=== PATIENT | male | born 1980 | race Caucasian/White ===

== ENCOUNTER 2017-03-23 12:49 | Inpatient (IN) | payer OTHER ==
[2017-03-23 14:54] VITALS: BMI 23.0
--- NOTE | 2017-03-23 17:38 | HP ---
CIWA Score - CIWA Score Nausea/Vomitin-No Nausea/No Vomiting Muscle Tremors: 3 Anxiety: 4-Mod. Anxious/Guarded Agitation: 4-Moderately Restless Paroxysmal Sweats: 3 Orientation: 3-Disoriented Date>2 days Tacttile Disturbances: 0-None Auditory Disturbances: 0-None Visual Disturbances: 0-None Headache: 2-Mild CIWA-Ar Total Score: 19 Admission ROS BHS - HPI Chief Complaint: Withdrawal sx. Allergies/Adverse Reactions: Allergies Allergy/AdvReac Type Severity Reaction Status Date / Time haloperidol [From Haldol] AdvReac Severe stiffness Verified 03/23/17 16:55 haloperidol lactate AdvReac Severe stiffness Verified 03/23/17 16:55 [From Haldol] History of Present Illness: 36 y/o man with a long hx. of drug dependence is admitted for detox. Pt. has been in previous detox,denies significant period drug free. Exam Limitations: No Limitations - Ebola screening Have you traveled outside of the country in the last 21 days: No Have you had contact with anyone from an Ebola affected area: No Have you been sick,other than usual withdrawal symptoms: No - Review of Systems Constitutional: Diaphoresis EENT: reports: No Symptoms Reported Respiratory: reports: No Symptoms reported Cardiac: reports: No Symptoms Reported GI: reports: No Symptoms Reported : reports: No Symptoms Reported Musculoskeletal: reports: Back Pain, Muscle Pain Integumentary: reports: Sweating Neuro: reports: Tremors Endocrine: reports: No Symptoms Reported Hematology: reports: No Symptoms Reported Psychiatric: reports: Agitated, Anxious Other Systems: Reviewed and Negative Patient History - Patient Medical History Hx Anemia: No Hx Asthma: No Hx Chronic Obstructive Pulmonary Disease (COPD): No Hx Cancer: No Hx Cardiac Disorders: No Hx Congestive Heart Failure: No Hx Hypertension: No Hx Hypercholesterolemia: No Hx Pacemaker: No HX Cerebrovascular Accident: No Hx Seizures: No Hx Dementia: No Hx Diabetes: No Hx Gastrointestinal Disorders: No Hx Genitourinary Disorders: No Hx Sexually Transmitted Disorders: Yes Hx Renal Disease (ESRD): No Hx Hepatitis C: Yes (Being treated with Epclusa) Hx Depression: No Hx Suicide Attempt: No Hx Bipolar Disorder: No Hx Schizophrenia: No - Patient Surgical History Past Surgical History: No Hx Neurologic Surgery: No Hx Cataract Extraction: No Hx Cardiac Surgery: No Hx Lung Surgery: No Hx Breast Surgery: No Hx Breast Biopsy: No Hx Abdominal Surgery: No Hx Appendectomy: No Hx Cholecystectomy: No Hx Genitourinary Surgery: No Hx Section: No Hx Orthopedic Surgery: No Anesthesia Reaction: No - PPD History Previous Implant?: Yes Documented Results: Negative w/o proof Implanted On Prior [facility] Admission?: No PPD to be Administered?: Yes - Smoking Cessation Smoking history: Current every day smoker Have you smoked in the past 12 months: Yes Aproximately how many cigarettes per day: 10 Hx Chewing Tobacco Use: No Initiated information on smoking cessation: Yes 'Breaking Loose' booklet given: 03/23/17 - Substance & Tx. History Hx Alcohol Use: No Hx Substance Use: Yes Substance Use Type: Cocaine, Heroin, Tranquilizers Hx Substance Use Treatment: Yes (Detox at [facility] 10/2016 & now OTP) - Substances Abused Cocaine Route: Injection Frequency: Daily Amount used: $200 Age of first use: 33 Date of Last Use: 03/22/17 Heroin Route: Injection Frequency: Daily Amount used: 8-10 bags Age of first use: 32 Date of Last Use: 03/23/17 Xanax Route: Oral Frequency: Daily Amount used: 16-20 mg. Age of first use: 30 Date of Last Use: 03/22/17 Family Disease History - Family Disease History Family Disease History: CA: Grandparent (Breast) Admission Physical Exam BHS - Vital Signs Vital Signs: Vital Signs - 24 hr 03/23/17 14:52 Temperature 96.4 F L Pulse Rate 49 L Respiratory 20 Rate Blood Pressure 93/54 - Physical General Appearance: Yes: Tremorous, Irritable, Sweating, Anxious HEENTM: Yes: Within Normal Limits Respiratory: Yes: Chest Non-Tender, Lungs Clear, Normal Breath Sounds Neck: Yes: Supple Breast: Yes: Breast Exam Deferred Cardiology: Yes: Regular Rhythm, Regular Rate, S1, S2 Abdominal: Yes: Normal Bowel Sounds, Non Tender, Flat, Soft Genitourinary: Yes: Within Normal Limits Back: Yes: Within Normal Limits Musculoskeletal: Yes: full range of Motion Extremities: Yes: Tremors, Pedal Edema (both LE), Swelling (left>right with pitting edema) Neurological: Yes: Fully Oriented, Alert Integumentary: Yes: Diaphoresis, Pitting Edema (LE), Other (mutiple slash alcantar left forearm) Lymphatic: Yes: Within Normal Limits - Diagnostic (1) Hep C w/o coma, chronic Current Visit: Yes Status: Acute (2) Opioid dependence on agonist therapy Current Visit: Yes Status: Acute (3) Sedative, hypnotic or anxiolytic dependence with withdrawal, uncomplicated Current Visit: Yes Status: Acute (4) Cocaine dependence, uncomplicated Current Visit: Yes Status: Acute Cleared for Admission [facility] - Detox or Rehab [facility] Level of Care: Medically Managed Detox Regimen/Protocol: Valium [facility] Breath Alcohol Content Breath Alcohol Content: 0 Urine Drug Screen - Results Drug Screen Negative: No Urine Drug Screen Results: PAKO-Cocaine, OPI-Opiates, BZO-Benzodiazepines, MTD- Methadone
[2017-03-23] MEDS ORDERED: MAGNESIUM HYDROX 2400MG/30ML ORAL SUSPENSION 30 ML CUP PO PRN (17:55)
[2017-03-23] MEDS ORDERED: IBUPROFEN 400 MG TABLET (FP) PO PRN (17:55)
[2017-03-23] MEDS ORDERED: MAG HYDROX/AL HYDROX/SIMETH 30 ML UNIT-DOSE CUP PO PRN (17:55)
[2017-03-23] MEDS ORDERED: MAGNESIUM CITRATE 300 ML BOTTLE PO PRN (17:55)
[2017-03-23] MEDS ORDERED: P-EPHED 60MG/TRIPROLIDI 2.5MG TABLET PO PRN (17:55)
[2017-03-23] MEDS ORDERED: NICOTINE POLACRILEX 2 MG GUM BC PRN (17:55)
[2017-03-23] MEDS ORDERED: LOPERAMIDE HCL 2 MG CAPSULE PO PRN (17:55)
[2017-03-23] MEDS ORDERED: diphenhydrAMINE HCL 50 MG CAPSULE PO PRN (17:55)
[2017-03-23] MEDS ORDERED: hydrOXYzine PAMOATE 50 MG CAPSULE (FP) PO PRN (17:55)
[2017-03-23] MEDS ORDERED: ACETAMINOPHEN 325 MG TABLET (FP) PO PRN (17:55)
[2017-03-23] MEDS ORDERED: MENTHOL/PHENOL 1 EACH UD MM PRN (17:55)
[2017-03-23] MEDS ORDERED: guaiFENesin/D-METHORPHAN HB 10 ML UNIT-DOSE CUPS PO PRN (17:55)
[2017-03-23] MEDS ORDERED: diazePAM 5 MG TABLET PO ONE (18:45)
[2017-03-23] MEDS: NICOTINE 21 MG/24 HOURS TOPICAL PATCH TD SCH (18:56)
[2017-03-23] MEDS: THIAMINE HCL 100 MG TABLET (FP) PO SCH (22:36)
[2017-03-23] MEDS: diazePAM 5 MG TABLET PO SCH (22:37)
--- NOTE | 2017-03-23 23:05 | PN ---
S Progress Note Note: ekg ap 38/min observed patient ambulating in room, alert oriented x 3, speech clearly coherent , steady gait, heart rate 48, regular s1s2, continue detox
[2017-03-24 02:38] LABS: URINE APPEARANCE SLCLOUDY; URINE BILIRUBIN NEGATIVE (NEGATIVE); URINE BLOOD NEGATIVE (NEGATIVE); URINE COLOR AMBER; URINE GLUCOSE (UA) NEGATIVE (NEGATIVE); URINE KETONE NEGATIVE (NEGATIVE); URINE LEUK ESTERASE NEGATIVE (NEGATIVE); URINE NITRITE NEGATIVE (NEGATIVE); URINE UROBILINOGEN 4.0 E.U/dl E.U./dl (0.2-1.0)
[2017-03-24 02:40] LABS: URINE PROTEIN 1+ (NEGATIVE)
[2017-03-24 02:50] LABS: CALCIUM OXALATE CRYSTALS FEW /hpf (NONE SEEN); URINE MUCUS MANY; URINE RBC 3 /hpf (0-3); URINE WBC 4 /hpf (3-5)
[2017-03-24] MEDS: diazePAM 5 MG TABLET PO SCH ×3 (06:03→22:44)
[2017-03-24] MEDS ORDERED: METHADONE HCL 40 MG DISPERSABLE TABLET PO ONE (09:25)
[2017-03-24] MEDS: NICOTINE 21 MG/24 HOURS TOPICAL PATCH TD SCH (10:48)
[2017-03-24] MEDS: PRENATAL VITAMINS W/ FOLIC ACID TABLET (FP) PO SCH (10:48)
[2017-03-24] MEDS: PATIENT'S OWN MEDICATION (NON-FORMULARY) (Sofosbuvir/Velpatasvir [Epclusa 400 Mg-100 Mg Ta PO SCH (10:48)
[2017-03-24 10:58] LABS: ALBUMIN 3.2 g/dl (3.4-5.0); ALK PHOS 79 U/L (45-117); ANION GAP 6 (8-16); BILIRUBIN,TOTAL 0.6 mg/dL (0.2-1.0); CALCIUM 8.6 mg/dL (8.5-10.1); CO2 29 mmol/L (21-32); CREATININE 0.8 mg/dL (0.7-1.3); GLUCOSE,RANDOM 113 mg/dL (74-106); SGOT/AST 27 U/L (15-37); SGPT/ALT 23 U/L (12-78); TOT PROT 6.4 g/dl (6.4-8.2)
--- NOTE | 2017-03-24 13:26 | PN ---
[facility] CIWA - CIWA Score Nausea/Vomitin-No Nausea/No Vomiting Muscle Tremors: 4-Moderate,w/Arms Extend Anxiety: 4-Mod. Anxious/Guarded Agitation: 4-Moderately Restless Paroxysmal Sweats: 1-Minimal Palms Moist Orientation: 0-Oriented Tacttile Disturbances: 3-Moderate Itch/Numb/Burn Auditory Disturbances: 0-None Visual Disturbances: 0-None Headache: 0-None Present CIWA-Ar Total Score: 16 BHS Progress Note (SOAP) Subjective: ANXIETY,SWEATS, IRRITABILITY,DECREASED APPETITE. Objective: 03/24/17 13:25 Vital Signs Temperature 96.6 F L 03/24/17 10:35 Pulse Rate 44 L 03/24/17 10:35 Respiratory Rate 18 03/24/17 10:35 Blood Pressure 105/64 03/24/17 10:35 O2 Sat by Pulse Oximetry (%) Laboratory Last Values WBC Cancelled 03/24/17 06:00 Corrected WBC (auto) Cancelled 03/24/17 06:00 RBC Cancelled 03/24/17 06:00 Hgb Cancelled 03/24/17 06:00 Hct Cancelled 03/24/17 06:00 MCV Cancelled 03/24/17 06:00 MCHC Cancelled 03/24/17 06:00 RDW Cancelled 03/24/17 06:00 Plt Count Cancelled 03/24/17 06:00 MPV Cancelled 03/24/17 06:00 Differential Comment Cancelled 03/24/17 06:00 Platelet Estimate Cancelled 03/24/17 06:00 Platelet Comment Cancelled 03/24/17 06:00 Platelet Comment Cancelled 03/24/17 06:00 RBC Morphology Cancelled 03/24/17 06:00 Sodium 139 mmol/L (136-145) 03/24/17 06:00 Potassium 4.3 mmol/L (3.5-5.1) 03/24/17 06:00 Chloride 104 mmol/L (98-107) 03/24/17 06:00 Carbon Dioxide 29 mmol/L (21-32) 03/24/17 06:00 Anion Gap 6 (8-16) L 03/24/17 06:00 BUN 15 mg/dL (7-18) 03/24/17 06:00 Creatinine 0.8 mg/dL (0.7-1.3) 03/24/17 06:00 Creat Clearance w eGFR > 60 (>60) 03/24/17 06:00 Random Glucose 113 mg/dL (74-106) H 03/24/17 06:00 Calcium 8.6 mg/dL (8.5-10.1) 03/24/17 06:00 Total Bilirubin 0.6 mg/dL (0.2-1.0) 03/24/17 06:00 AST 27 U/L (15-37) 03/24/17 06:00 ALT 23 U/L (12-78) 03/24/17 06:00 Alkaline Phosphatase 79 U/L (45-117) 03/24/17 06:00 Total Protein 6.4 g/dl (6.4-8.2) 03/24/17 06:00 Albumin 3.2 g/dl (3.4-5.0) L 03/24/17 06:00 Urine Color Feder[place] 03/24/17 00:11 Urine Appearance Slcloudy 03/24/17 00:11 Urine pH 5.0 (5.0-8.0) 03/24/17 00:11 Ur Specific [place] >= 1.030 (1.005-1.025) H 03/24/17 00:11 Urine Protein 1+ (NEGATIVE) H 03/24/17 00:11 Urine Glucose (UA) Negative (NEGATIVE) 03/24/17 00:11 Urine Ketones Negative (NEGATIVE) 03/24/17 00:11 Urine Blood Negative (NEGATIVE) 03/24/17 00:11 Urine Nitrite Negative (NEGATIVE) 03/24/17 00:11 Urine Bilirubin Negative (NEGATIVE) 03/24/17 00:11 Urine Urobilinogen 4.0 e.u/dl E.U./dl (0.2-1.0) 03/24/17 00:11 Ur Leukocyte Esterase Negative (NEGATIVE) 03/24/17 00:11 Urine RBC 3 /hpf (0-3) 03/24/17 00:11 Urine WBC 4 /hpf (3-5) 03/24/17 00:11 Calcium Oxalate Crystal Few /hpf (NONE SEEN) 03/24/17 00:11 Urine Mucus Many 03/24/17 00:11 RPR Titer Nonreactive (NONREACTIVE) 03/24/17 06:00 Assessment: 03/24/17 13:25 WITHDRAWAL SX Plan: CONTINUE DETOX INCREASE PO FLUIDS
--- NOTE | 2017-03-24 14:08 | CONSULT ---
[facility] Psychiatric Consult - Data Date of interview: 03/24/17 Admission source: [facility] Identifying data: This is 36 years old male with no psychiatric hospitalization history intoxicat. Opioids, Xanax, Cocaine, Nicotine Substance Abuse History: - Smoking Cessation. Smoking history: Current every day smoker. Have you smoked in the past 12 months: Yes. Aproximately how many cigarettes per day: 10. Hx Chewing Tobacco Use: No. Initiated information on smoking cessation: Yes. 'Breaking Loose' booklet given: 03/23/17. - Substance & Tx. History. Hx Alcohol Use: No. Hx Substance Use: Yes. Substance Use Type : Cocaine, Heroin, Tranquilizers. Hx Substance Use Treatment: Yes (Detox at [facility] 10/2016 & now OTP). - Substances Abused. Cocaine. Route: Injection. Frequency: Daily. Amount used: $200. Age of first use: 33. Date of Last Use: 03/22/17. Heroin. Route: Injection. Frequency: Daily. Amount used: 8-10 bags. Age of first use: 32. Date of Last Use: 03/23/17. Xanax. Route: Oral. Frequency: Daily. Amount used: 16-20 mg. Age of first use: 30. Date of Last Use: 03/22/17 Medical History: HepC+ Psychiatric History: Patient reports severe insomnia, reports Seroquel 100mg po qhs in the past with good response Physical/Sexual Abuse/Trauma History: Denies Additional Comment: Seroquel 100mg po qhs Mental Status Exam - Mental Status Exam Alert and Oriented to: Person Cognitive Function: Fair Patient Appearance: Unkempt Mood: Anxious Affect: Mood Congruent Patient Behavior: Cooperative Speech Pattern: Appropriate Voice Loudness: Normal Thought Process: Goal Oriented Thought Disorder: Being Controlled Hallucinations: Denies Suicidal Ideation: Denies Homicidal Ideation: Denies Insight/Judgement: Fair Sleep: Difficulty falling asleep Appetite: Fair Muscle strength/Tone: Normal Gait/Station: Normal Additional Comments: Seroquel 100mg po qhs Psychiatric Findings - Problem List ([place] 1, 2,3) (1) Sedative, hypnotic or anxiolytic dependence with withdrawal, uncomplicated Current Visit: Yes Status: Acute (2) Cocaine dependence, uncomplicated Current Visit: Yes Status: Acute (3) Opioid dependence on agonist therapy Current Visit: Yes Status: Acute (4) Nicotine dependence Current Visit: Yes Status: Acute (5) Drug-induced mood disorder Current Visit: Yes Status: Acute - Initial Treatment Plan Initial Treatment Plan: Seroquel 100mg po qhs
--- NOTE | 2017-03-24 15:53 | EKG ---
Test Reason : Blood Pressure : / mmHG Vent. Rate : 033 BPM Atrial Rate : 033 BPM P-R Int : 174 ms QRS Dur : 102 ms QT Int : 518 ms P-R-T Axes : 034 053 045 degrees QTc Int : 383 ms MARKED SINUS BRADYCARDIA ABNORMAL ECG NO PREVIOUS ECGS AVAILABLE Confirmed by BRAYDEN ROSALES MD ([id number]) on 03/24/2017 3:53:37 PM Referred By: Confirmed By:BRAYDEN ROSALES MD
--- NOTE | 2017-03-24 15:54 | EKG ---
Test Reason : Blood Pressure : / mmHG Vent. Rate : 039 BPM Atrial Rate : 039 BPM P-R Int : 172 ms QRS Dur : 096 ms QT Int : 482 ms P-R-T Axes : 031 038 039 degrees QTc Int : 388 ms POOR DATA QUALITY, INTERPRETATION MAY BE ADVERSELY AFFECTED MARKED SINUS BRADYCARDIA WITH SINUS ARRHYTHMIA ABNORMAL ECG Confirmed by BRAYDEN ROSALES MD ([id number]) on 03/24/2017 3:54:13 PM Referred By: Confirmed By:BRAYDEN ROSALES MD
[2017-03-24] MEDS: THIAMINE HCL 100 MG TABLET (FP) PO SCH (22:44)
[2017-03-24] MEDS: QUEtiapine FUMARATE 100 MG TABLET (FP) PO SCH (22:44)
[2017-03-25] MEDS: diazePAM 5 MG TABLET PO PRN (05:37)
[2017-03-25] MEDS: METHADONE HCL 40 MG DISPERSABLE TABLET PO SCH (05:37)
[2017-03-25] MEDS ORDERED: AMOX TR/POT CLAV 875MG/125MG TABLETS (FP) PO ONE (10:10)
[2017-03-25] MEDS ORDERED: BACITRACIN 0.9 GM PACKET TP SCH (10:15)
[2017-03-25] MEDS: PRENATAL VITAMINS W/ FOLIC ACID TABLET (FP) PO SCH (10:40)
[2017-03-25] MEDS: NICOTINE 21 MG/24 HOURS TOPICAL PATCH TD SCH (10:40)
[2017-03-25] MEDS: PATIENT'S OWN MEDICATION (NON-FORMULARY) (Sofosbuvir/Velpatasvir [Epclusa 400 Mg-100 Mg Ta PO SCH (10:40)
[2017-03-25] MEDS: diazePAM 5 MG TABLET PO SCH ×2 (10:40→22:29)
--- NOTE | 2017-03-25 11:45 | PN ---
[facility] CIWA - CIWA Score Nausea/Vomitin-No Nausea/No Vomiting Muscle Tremors: 4-Moderate,w/Arms Extend Anxiety: 4-Mod. Anxious/Guarded Agitation: 4-Moderately Restless Paroxysmal Sweats: 1-Minimal Palms Moist Orientation: 0-Oriented Tacttile Disturbances: 3-Moderate Itch/Numb/Burn Auditory Disturbances: 0-None Visual Disturbances: 0-None Headache: 0-None Present CIWA-Ar Total Score: 16 S Progress Note (SOAP) Subjective: ANXIETY,IRRITABILITY,SWEATS. C/O LUMP PAINFUL ON LEFT NECK THAT STARTED A SMALL PIMPLE. Objective: 03/25/17 11:43 Vital Signs Temperature 97.0 F L 03/25/17 10:12 Pulse Rate 52 L 03/25/17 10:12 Respiratory Rate 18 03/25/17 10:12 Blood Pressure 124/63 03/25/17 10:12 O2 Sat by Pulse Oximetry (%) Laboratory Last Values WBC Cancelled 03/24/17 06:00 Corrected WBC (auto) Cancelled 03/24/17 06:00 RBC Cancelled 03/24/17 06:00 Hgb Cancelled 03/24/17 06:00 Hct Cancelled 03/24/17 06:00 MCV Cancelled 03/24/17 06:00 MCHC Cancelled 03/24/17 06:00 RDW Cancelled 03/24/17 06:00 Plt Count Cancelled 03/24/17 06:00 MPV Cancelled 03/24/17 06:00 Differential Comment Cancelled 03/24/17 06:00 Platelet Estimate Cancelled 03/24/17 06:00 Platelet Comment Cancelled 03/24/17 06:00 Platelet Comment Cancelled 03/24/17 06:00 RBC Morphology Cancelled 03/24/17 06:00 Sodium 139 mmol/L (136-145) 03/24/17 06:00 Potassium 4.3 mmol/L (3.5-5.1) 03/24/17 06:00 Chloride 104 mmol/L (98-107) 03/24/17 06:00 Carbon Dioxide 29 mmol/L (21-32) 03/24/17 06:00 Anion Gap 6 (8-16) L 03/24/17 06:00 BUN 15 mg/dL (7-18) 03/24/17 06:00 Creatinine 0.8 mg/dL (0.7-1.3) 03/24/17 06:00 Creat Clearance w eGFR > 60 (>60) 03/24/17 06:00 Random Glucose 113 mg/dL (74-106) H 03/24/17 06:00 Calcium 8.6 mg/dL (8.5-10.1) 03/24/17 06:00 Total Bilirubin 0.6 mg/dL (0.2-1.0) 03/24/17 06:00 AST 27 U/L (15-37) 03/24/17 06:00 ALT 23 U/L (12-78) 03/24/17 06:00 Alkaline Phosphatase 79 U/L (45-117) 03/24/17 06:00 Total Protein 6.4 g/dl (6.4-8.2) 03/24/17 06:00 Albumin 3.2 g/dl (3.4-5.0) L 03/24/17 06:00 Urine Color Federica 03/24/17 00:11 Urine Appearance Slcloudy 03/24/17 00:11 Urine pH 5.0 (5.0-8.0) 03/24/17 00:11 Ur Specific [place] >= 1.030 (1.005-1.025) H 03/24/17 00:11 Urine Protein 1+ (NEGATIVE) H 03/24/17 00:11 Urine Glucose (UA) Negative (NEGATIVE) 03/24/17 00:11 Urine Ketones Negative (NEGATIVE) 03/24/17 00:11 Urine Blood Negative (NEGATIVE) 03/24/17 00:11 Urine Nitrite Negative (NEGATIVE) 03/24/17 00:11 Urine Bilirubin Negative (NEGATIVE) 03/24/17 00:11 Urine Urobilinogen 4.0 e.u/dl E.U./dl (0.2-1.0) 03/24/17 00:11 Ur Leukocyte Esterase Negative (NEGATIVE) 03/24/17 00:11 Urine RBC 3 /hpf (0-3) 03/24/17 00:11 Urine WBC 4 /hpf (3-5) 03/24/17 00:11 Calcium Oxalate Crystal Few /hpf (NONE SEEN) 03/24/17 00:11 Urine Mucus Many 03/24/17 00:11 RPR Titer Nonreactive (NONREACTIVE) 03/24/17 06:00 LABS NOTED NECK EXAM: LEFT NECK WITH 10 MM SIZE ABSCESS PAINFUL TO PALPATE. Assessment: 03/25/17 11:44 WITHDRAWAL SX Plan: CONTINUE DETOX BACITRACIN TO LEFT NECK ABSCESS AUGMENTIN 875 MG PO BID X 7 DAYS
[2017-03-25] MEDS: AMOX TR/POT CLAV 875MG/125MG TABLETS (FP) PO SCH (16:57)
[2017-03-25] MEDS: THIAMINE HCL 100 MG TABLET (FP) PO SCH (22:29)
[2017-03-25] MEDS: BACITRACIN 0.9 GM PACKET TP SCH (22:29)
[2017-03-25] MEDS: QUEtiapine FUMARATE 100 MG TABLET (FP) PO SCH (22:29)
[2017-03-26] MEDS: METHADONE HCL 40 MG DISPERSABLE TABLET PO SCH (05:35)
[2017-03-26] MEDS: diazePAM 5 MG TABLET PO PRN ×2 (05:36→17:35)
[2017-03-26] MEDS: AMOX TR/POT CLAV 875MG/125MG TABLETS (FP) PO SCH ×2 (07:37→17:33)
[2017-03-26] MEDS: PATIENT'S OWN MEDICATION (NON-FORMULARY) (Sofosbuvir/Velpatasvir [Epclusa 400 Mg-100 Mg Ta PO SCH (10:35)
[2017-03-26] MEDS: PRENATAL VITAMINS W/ FOLIC ACID TABLET (FP) PO SCH (10:35)
[2017-03-26] MEDS: BACITRACIN 0.9 GM PACKET TP SCH ×2 (10:35→22:20)
[2017-03-26] MEDS: diazePAM 5 MG TABLET PO SCH ×2 (10:35→22:20)
[2017-03-26] MEDS: NICOTINE 21 MG/24 HOURS TOPICAL PATCH TD SCH (10:36)
[2017-03-26] MEDS: GABAPENTIN 400 MG CAPSULE (FP) PO SCH ×2 (14:39→22:20)
--- NOTE | 2017-03-26 15:36 | PN ---
BHS Progress Note (SOAP) Subjective: Interrupted sleep, Body Aches. Objective: PT. A & O X 3, OBSERVED AMBULATING ON UNIT. NO ACUTE DISTRESS. 03/26/17 15:34 Vital Signs Temperature 98.4 F 03/26/17 13:56 Pulse Rate 74 03/26/17 13:56 Respiratory Rate 18 03/26/17 13:56 Blood Pressure 110/70 03/26/17 13:56 O2 Sat by Pulse Oximetry (%) Laboratory Tests 03/24/17 03/24/17 03/24/17 00:11 06:00 06:00 WBC Cancelled Corrected WBC (auto) Cancelled RBC Cancelled Hgb Cancelled Hct Cancelled MCV Cancelled MCHC Cancelled RDW Cancelled Plt Count Cancelled MPV Cancelled Differential Comment Cancelled Platelet Estimate Cancelled Platelet Comment Cancelled RBC Morphology Cancelled Sodium 139 Potassium 4.3 Chloride 104 Carbon Dioxide 29 Anion Gap 6 L BUN 15 Creatinine 0.8 Creat Clearance w eGFR > 60 Random Glucose 113 H Calcium 8.6 Total Bilirubin 0.6 AST 27 ALT 23 Alkaline Phosphatase 79 Total Protein 6.4 Albumin 3.2 L Urine Color Federica Urine Appearance Slcloudy Urine pH 5.0 Ur Specific [place] >= 1.030 H Urine Protein 1+ H Urine Glucose (UA) Negative Urine Ketones Negative Urine Blood Negative Urine Nitrite Negative Urine Bilirubin Negative Urine Urobilinogen 4.0 e.u/dl Ur Leukocyte Esterase Negative Urine RBC 3 Urine WBC 4 Calcium Oxalate Crystal Few Urine Mucus Many RPR Titer 03/24/17 06:00 WBC Corrected WBC (auto) RBC Hgb Hct MCV MCHC RDW Plt Count MPV Differential Comment Platelet Estimate Platelet Comment RBC Morphology Sodium Potassium Chloride Carbon Dioxide Anion Gap BUN Creatinine Creat Clearance w eGFR Random Glucose Calcium Total Bilirubin AST ALT Alkaline Phosphatase Total Protein Albumin Urine Color Urine Appearance Urine pH Ur Specific [place] Urine Protein Urine Glucose (UA) Urine Ketones Urine Blood Urine Nitrite Urine Bilirubin Urine Urobilinogen Ur Leukocyte Esterase Urine RBC Urine WBC Calcium Oxalate Crystal Urine Mucus RPR Titer Nonreactive LABS NOTED. Assessment: 03/26/17 15:34 WITHDRAWAL SYMPTOMS. Plan: CONTINUE DETOX.
[2017-03-26] MEDS: THIAMINE HCL 100 MG TABLET (FP) PO SCH (22:20)
[2017-03-26] MEDS: QUEtiapine FUMARATE 100 MG TABLET (FP) PO SCH (22:21)
[2017-03-27] MEDS: GABAPENTIN 400 MG CAPSULE (FP) PO SCH (05:47)
[2017-03-27] MEDS: METHADONE HCL 40 MG DISPERSABLE TABLET PO SCH (05:47)
[2017-03-27] MEDS: AMOX TR/POT CLAV 875MG/125MG TABLETS (FP) PO SCH (07:45)
[2017-03-27] MEDS ORDERED: diazePAM 5 MG TABLET PO SCH (10:00)
[2017-03-27] MEDS: BACITRACIN 0.9 GM PACKET TP SCH (10:11)
[2017-03-27] MEDS: PRENATAL VITAMINS W/ FOLIC ACID TABLET (FP) PO SCH (10:11)
[2017-03-27] MEDS: PATIENT'S OWN MEDICATION (NON-FORMULARY) (Sofosbuvir/Velpatasvir [Epclusa 400 Mg-100 Mg Ta PO SCH (10:12)
[2017-03-27] MEDS: NICOTINE 21 MG/24 HOURS TOPICAL PATCH TD SCH (10:13)
[2017-03-27 11:13] VITALS: BP 122/73; PULSE 60; TEMP 96.3
--- NOTE | 2017-03-27 14:11 | DS ---
[facility] Detox Discharge Summary Admission Date: 03/23/17 Discharge Date: 03/27/17 - History Present History: Cocaine Dependence, Opioid Dependence, Sedative Dependence, MMTP Pertinent Past History: Hepatitis C (treated) Neck abscess, acute: on augmentin - Physical Exam Results Vital Signs: Vital Signs Temperature 96.3 F L 03/27/17 11:13 Pulse Rate 60 03/27/17 11:13 Respiratory Rate 18 03/27/17 11:13 Blood Pressure 122/73 03/27/17 11:13 O2 Sat by Pulse Oximetry (%) Pertinent Admission Physical Exam Findings: Withdrawal symptoms Laboratory Tests 03/24/17 03/24/17 03/24/17 00:11 06:00 06:00 WBC Cancelled Corrected WBC (auto) Cancelled RBC Cancelled Hgb Cancelled Hct Cancelled MCV Cancelled MCHC Cancelled RDW Cancelled Plt Count Cancelled MPV Cancelled Differential Comment Cancelled Platelet Estimate Cancelled Platelet Comment Cancelled RBC Morphology Cancelled Sodium 139 Potassium 4.3 Chloride 104 Carbon Dioxide 29 Anion Gap 6 L BUN 15 Creatinine 0.8 Creat Clearance w eGFR > 60 Random Glucose 113 H Calcium 8.6 Total Bilirubin 0.6 AST 27 ALT 23 Alkaline Phosphatase 79 Total Protein 6.4 Albumin 3.2 L Urine Color Feder[place] Urine Appearance Slcloudy Urine pH 5.0 Ur Specific [place] >= 1.030 H Urine Protein 1+ H Urine Glucose (UA) Negative Urine Ketones Negative Urine Blood Negative Urine Nitrite Negative Urine Bilirubin Negative Urine Urobilinogen 4.0 e.u/dl Ur Leukocyte Esterase Negative Urine RBC 3 Urine WBC 4 Calcium Oxalate Crystal Few Urine Mucus Many RPR Titer 03/24/17 06:00 WBC Corrected WBC (auto) RBC Hgb Hct MCV MCHC RDW Plt Count MPV Differential Comment Platelet Estimate Platelet Comment RBC Morphology Sodium Potassium Chloride Carbon Dioxide Anion Gap BUN Creatinine Creat Clearance w eGFR Random Glucose Calcium Total Bilirubin AST ALT Alkaline Phosphatase Total Protein Albumin Urine Color Urine Appearance Urine pH Ur Specific [place] Urine Protein Urine Glucose (UA) Urine Ketones Urine Blood Urine Nitrite Urine Bilirubin Urine Urobilinogen Ur Leukocyte Esterase Urine RBC Urine WBC Calcium Oxalate Crystal Urine Mucus RPR Titer Nonreactive Labs noted: CBC reordered (not done): noted with abnormal UA (will repeat UA, encouraged to drink lots of water) - Treatment Hospital Course: Detox Protocol Followed, Detoxed Safely, Responded well, Discharged Condition Good, Rehab Referral Accepted - Medication Discharge Medications: Ambulatory Orders Sofosbuvir/Velpatasvir [Epclusa 400 mg-100 mg Tablet] 1 each PO DAILY 03/23/17 Quetiapine Fumarate [Seroquel] 100 mg PO HS #30 tablet 03/24/17 Gabapentin 600 mg PO TID 03/26/17 - Diagnosis (1) Sedative, hypnotic or anxiolytic dependence with withdrawal, uncomplicated Status: Acute (2) Cocaine dependence, uncomplicated Status: Chronic (3) Opioid dependence on agonist therapy Status: Acute (4) Hep C w/o coma, chronic Status: Chronic (5) Nicotine dependence Status: Chronic (6) Abscess of skin of neck Status: Acute - AMA Did Patient Leave Against Medical Advice: No
--- NOTE | 2017-03-27 22:16 | EKG ---
Test Reason : Blood Pressure : / mmHG Vent. Rate : 050 BPM Atrial Rate : 050 BPM P-R Int : 162 ms QRS Dur : 102 ms QT Int : 472 ms P-R-T Axes : 022 037 038 degrees QTc Int : 430 ms SINUS BRADYCARDIA NONSPECIFIC T WAVE ABNORMALITY ABNORMAL ECG WHEN COMPARED WITH ECG OF 24-MAR-2017 10:06, NONSPECIFIC T WAVE ABNORMALITY NOW EVIDENT IN ANTERIOR LEADS Confirmed by LILIANA LI MD ([id number]) on 03/27/2017 10:16:15 PM Referred By: Confirmed By:LILIANA LI MD
== END 2017-03-27 11:25 | disposition home or self-care (01) | DRG 773 ==
LOC: YASAS 12:49 → Y3N 17:42
PROVIDERS: ADMIT Internal Medicine; ATTEND Internal Medicine
PROC: HZ2ZZZZ Detoxification Services for Substance Abuse Treatment (ICD-10-PCS; principal; 2017-03-27)
DX: F11.20 Opioid dependence, uncomplicated (principal); F13.230 Sedative, hypnotic or anxiolytic dependence with withdrawal, uncomplicated; F14.20 Cocaine dependence, uncomplicated; F17.210 Nicotine dependence, cigarettes, uncomplicated; F19.24 Other psychoactive substance dependence with psychoactive substance-induced mood disorder; B18.2 Chronic viral hepatitis C; L02.11 Cutaneous abscess of neck; Z59.0 Homelessness
CPT/HCPCS: 36415; 80053; 81003; 81015; 86593; 93005; 93010

== ENCOUNTER 2018-08-23 14:27 | Inpatient (IN) | payer OTHER ==
[2018-08-23 18:57] VITALS: BMI 23.6
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
[2018-08-23] MEDS ORDERED: METHADONE HCL 10 MG TABLET PO ONE (21:41)
[2018-08-23] MEDS ORDERED: LOPERAMIDE HCL 2 MG CAPSULE PO PRN (21:45)
[2018-08-23] MEDS ORDERED: ACETAMINOPHEN 325 MG TABLET (FP) PO PRN (21:45)
[2018-08-23] MEDS ORDERED: guaiFENesin/D-METHORPHAN HB 10 ML UNIT-DOSE CUPS PO PRN (21:45)
[2018-08-23] MEDS ORDERED: MAGNESIUM CITRATE 300 ML BOTTLE PO PRN (21:45)
[2018-08-23] MEDS ORDERED: MAG HYDROX/AL HYDROX/SIMETH 30 ML UNIT-DOSE CUP PO PRN (21:45)
[2018-08-23] MEDS ORDERED: P-EPHED 60MG/TRIPROLIDI 2.5MG TABLET PO PRN (21:45)
[2018-08-23] MEDS ORDERED: MENTHOL/PHENOL 1 EACH UD MM PRN (21:45)
[2018-08-23] MEDS ORDERED: MAGNESIUM HYDROX 2400MG/30ML ORAL SUSPENSION 30 ML CUP PO PRN (21:45)
[2018-08-23] MEDS ORDERED: IBUPROFEN 400 MG TABLET (FP) PO PRN (21:45)
[2018-08-23] MEDS ORDERED: diazePAM 5 MG TABLET PO ONE (21:45)
[2018-08-23] MEDS ORDERED: NICOTINE POLACRILEX 2 MG GUM BUC PRN (21:45)
[2018-08-23] MEDS ORDERED: MELATONIN 5 MG TABLETS PO PRN (22:00)
[2018-08-23] MEDS: THIAMINE HCL 100 MG TABLET (FP) PO SCH (23:35)
[2018-08-23] MEDS: diazePAM 5 MG TABLET PO SCH (23:35)
[2018-08-24 02:11] LABS: URINE APPEARANCE TURBID; URINE BILIRUBIN NEGATIVE (<2.0 mg/dL); URINE COLOR AMBER; URINE GLUCOSE (UA) NEGATIVE (NEGATIVE); URINE KETONE NEGATIVE (NEGATIVE); URINE LEUK ESTERASE NEGATIVE (NEGATIVE); URINE NITRITE NEGATIVE (NEGATIVE); URINE PROTEIN NEGATIVE (NEGATIVE); URINE UROBILINOGEN 4.0 E.U/dl mg/dL (0.2-1.0)
[2018-08-24] MEDS: METHADONE HCL 40 MG DISPERSABLE TABLET PO SCH (05:11)
[2018-08-24] MEDS: diazePAM 5 MG TABLET PO SCH ×3 (05:11→22:08)
--- NOTE | 2018-08-24 09:35 | PN ---
[facility] CIWA - CIWA Score Nausea/Vomitin-Mild Nausea/No Vomiting Muscle Tremors: 3 Anxiety: 4-Mod. Anxious/Guarded Agitation: 4-Moderately Restless Paroxysmal Sweats: 1-Minimal Palms Moist Orientation: 1-Uncertain about Date Tacttile Disturbances: 1-Very Mild Itch/Numbness Auditory Disturbances: 1-Very Mild Visual Disturbances: 0-None Headache: 1-Very Mild CIWA-Ar Total Score: 17 BHS Progress Note (SOAP) Subjective: anxiety restlessness body aches sweat tremor trouble sleep at night methadone program 40 mg daily Objective: 08/24/18 09:36 Vital Signs Temperature 98.1 F 08/24/18 09:24 Pulse Rate 75 08/24/18 09:24 Respiratory Rate 20 08/24/18 09:24 Blood Pressure 126/73 08/24/18 09:24 O2 Sat by Pulse Oximetry (%) Laboratory Last Values Urine Color [place] 08/23/18 23:21 Urine Appearance Turbid 08/23/18 23:21 Urine pH 5.0 (5.0-8.0) 08/23/18 23:21 Ur Specific [place] 1.032 (1.010-1.035) 08/23/18 23:21 Urine Protein Negative (NEGATIVE) 08/23/18 23:21 Urine Glucose (UA) Negative (NEGATIVE) 08/23/18 23:21 Urine Ketones Negative (NEGATIVE) 08/23/18 23:21 Urine Blood Negative (NEGATIVE) 08/23/18 23:21 Urine Nitrite Negative (NEGATIVE) 08/23/18 23:21 Urine Bilirubin Negative (<2.0 mg/dL) 08/23/18 23:21 Urine Urobilinogen 4.0 e.u/dl mg/dL (0.2-1.0) 08/23/18 23:21 Ur Leukocyte Esterase Negative (NEGATIVE) 08/23/18 23:21 lab noted Assessment: 08/24/18 09:36 withdrawal sx from alcohol and methadone last dose 08/22/18 begin methadone 40 mg 08/24/18 at 6 am Plan: continue detox
[2018-08-24 10:18] LABS: HEMATOCRIT 37.6 % (35.4-49); HEMOGLOBIN 13.1 GM/dL (11.7-16.9); MCH 27.2 pg (25.7-33.7); MCHC 34.8 g/dl (32.0-35.9); MEAN CELL VOLUME 78.1 fl (80-96); MEAN PLT VOLUME 8.7 fl (7.5-11.1); PLATELET COUNT 165 K/MM3 (134-434); RBC 4.81 M/mm3 (4.00-5.60); RDW 14.7 % (11.9-15.9); WHITE BLOOD COUNT 5.6 K/mm3 (4.0-10.0)
[2018-08-24] MEDS: diazePAM 5 MG TABLET PO PRN ×2 (10:26→17:26)
[2018-08-24] MEDS: NICOTINE 14 MG/24 HOURS TOPICAL PATCH TD SCH (10:27)
[2018-08-24] MEDS: PRENATAL VITAMINS W/ FOLIC ACID TABLET (FP) PO SCH (10:27)
[2018-08-24 10:57] LABS: ALBUMIN 2.9 g/dl (3.4-5.0); ALK PHOS 57 U/L (45-117); ANION GAP 10 MMOL/L (8-16); BILIRUBIN,TOTAL 0.4 mg/dL (0.2-1); BLOOD UREA NITROGEN 12 mg/dL (7-18); CHLORIDE 106 mmol/L (98-107); CO2 27 mmol/L (21-32); CREATININE 0.7 mg/dL (0.55-1.3); GLUCOSE,RANDOM 84 mg/dL (74-106); POTASSIUM 3.8 mmol/L (3.5-5.1); SGOT/AST 58 U/L (15-37); SGPT/ALT 61 U/L (13-61); SODIUM 143 mmol/L (136-145); TOT PROT 5.9 g/dl (6.4-8.2)
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
[2018-08-24] MEDS: THIAMINE HCL 100 MG TABLET (FP) PO SCH (22:08)
[2018-08-24] MEDS: SUVOREXANT 10 MG TABLET PO PRN (22:09)
[2018-08-25] MEDS: METHADONE HCL 40 MG DISPERSABLE TABLET PO SCH (05:06)
--- NOTE | 2018-08-25 09:51 | EKG ---
Test Reason : Blood Pressure : / mmHG Vent. Rate : 078 BPM Atrial Rate : 078 BPM P-R Int : 152 ms QRS Dur : 104 ms QT Int : 412 ms P-R-T Axes : 067 054 030 degrees QTc Int : 469 ms NORMAL SINUS RHYTHM NON-SPECIFIC INTRA-VENTRICULAR CONDUCTION DELAY Confirmed by IRON SOLO MD ([id number]) on 08/25/2018 9:51:03 AM Referred By: Confirmed By:IRON SOLO MD
[2018-08-25] MEDS: NICOTINE 14 MG/24 HOURS TOPICAL PATCH TD SCH (10:18)
[2018-08-25] MEDS: diazePAM 5 MG TABLET PO SCH ×2 (10:18→22:15)
[2018-08-25] MEDS: PRENATAL VITAMINS W/ FOLIC ACID TABLET (FP) PO SCH (10:18)
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
[2018-08-25] MEDS: GABAPENTIN 300 MG CAPSULE (FP) PO SCH ×2 (14:24→22:15)
[2018-08-25] MEDS: diazePAM 5 MG TABLET PO PRN (17:01)
[2018-08-25] MEDS: THIAMINE HCL 100 MG TABLET (FP) PO SCH (22:15)
[2018-08-25] MEDS: SUVOREXANT 10 MG TABLET PO PRN (22:15)
[2018-08-26] MEDS: METHADONE HCL 40 MG DISPERSABLE TABLET PO SCH (05:13)
[2018-08-26] MEDS: GABAPENTIN 300 MG CAPSULE (FP) PO SCH ×3 (05:13→22:05)
[2018-08-26] MEDS: diazePAM 5 MG TABLET PO PRN ×2 (07:52→17:29)
[2018-08-26] MEDS: PRENATAL VITAMINS W/ FOLIC ACID TABLET (FP) PO SCH (10:24)
[2018-08-26] MEDS: diazePAM 5 MG TABLET PO SCH ×2 (10:24→22:05)
[2018-08-26] MEDS: NICOTINE 14 MG/24 HOURS TOPICAL PATCH TD SCH (10:24)
--- NOTE | 2018-08-26 12:24 | PN ---
S Progress Note (SOAP) Subjective: Anxious Worried about pending d/c requesting extra day Objective: 08/26/18 12:22 A & O x 3 Anxious Restless Ambulating up and down unit Vital Signs Temperature 96.2 F L 08/26/18 09:24 Pulse Rate 60 08/26/18 09:24 Respiratory Rate 18 08/26/18 09:24 Blood Pressure 123/72 08/26/18 09:24 O2 Sat by Pulse Oximetry (%) Assessment: 08/26/18 12:23 withdrawal sx Anxiety over discharge Plan: Continue detox For d/c on mon 08/28/18 for safe discharge ( see counselor's note)
[2018-08-26] MEDS: THIAMINE HCL 100 MG TABLET (FP) PO SCH (22:04)
[2018-08-26] MEDS: SUVOREXANT 10 MG TABLET PO PRN (22:05)
[2018-08-27] MEDS: METHADONE HCL 40 MG DISPERSABLE TABLET PO SCH (05:17)
[2018-08-27] MEDS: GABAPENTIN 300 MG CAPSULE (FP) PO SCH ×3 (05:17→22:03)
[2018-08-27] MEDS: PRENATAL VITAMINS W/ FOLIC ACID TABLET (FP) PO SCH (09:32)
[2018-08-27] MEDS: NICOTINE 14 MG/24 HOURS TOPICAL PATCH TD SCH (09:41)
[2018-08-27] MEDS ORDERED: diazePAM 5 MG TABLET PO SCH (10:00)
--- NOTE | 2018-08-27 13:16 | PN ---
[facility] Progress Note (SOAP) Subjective: Anxious, restless, interrupted sleep Objective: 08/27/18 13:14 Last Vital Signs Temp Pulse Resp BP Pulse Ox 97.0 F L 82 18 123/75 08/27/18 09:50 08/27/18 09:50 08/27/18 09:50 08/27/18 09:50 Laboratory Tests 08/23/18 08/24/18 08/24/18 23:21 07:50 07:50 WBC 5.6 RBC 4.81 Hgb 13.1 Hct 37.6 MCV 78.1 L MCH 27.2 MCHC 34.8 RDW 14.7 Plt Count 165 D MPV 8.7 Sodium 143 Potassium 3.8 Chloride 106 Carbon Dioxide 27 Anion Gap 10 BUN 12 Creatinine 0.7 Creat Clearance w eGFR > 60 Random Glucose 84 Calcium 8.0 L Total Bilirubin 0.4 AST 58 H ALT 61 Alkaline Phosphatase 57 Total Protein 5.9 L Albumin 2.9 L Urine Color [place] Urine Appearance Turbid Urine pH 5.0 Ur Specific [place] 1.032 Urine Protein Negative Urine Glucose (UA) Negative Urine Ketones Negative Urine Blood Negative Urine Nitrite Negative Urine Bilirubin Negative Urine Urobilinogen 4.0 e.u/dl Ur Leukocyte Esterase Negative RPR Titer 08/24/18 07:50 WBC RBC Hgb Hct MCV MCH MCHC RDW Plt Count MPV Sodium Potassium Chloride Carbon Dioxide Anion Gap BUN Creatinine Creat Clearance w eGFR Random Glucose Calcium Total Bilirubin AST ALT Alkaline Phosphatase Total Protein Albumin Urine Color Urine Appearance Urine pH Ur Specific [place] Urine Protein Urine Glucose (UA) Urine Ketones Urine Blood Urine Nitrite Urine Bilirubin Urine Urobilinogen Ur Leukocyte Esterase RPR Titer Nonreactive Labs reviewed Assessment: 08/27/18 13:14 Withdrawal symptoms Plan: Continue detox Encouraged PO water intake Patient for discharge to rehab tomorrow (possible outside rehab)
[2018-08-27] MEDS ORDERED: SUVOREXANT 10 MG TABLET PO PRN (22:00)
[2018-08-27] MEDS: THIAMINE HCL 100 MG TABLET (FP) PO SCH (22:03)
[2018-08-28] MEDS: GABAPENTIN 300 MG CAPSULE (FP) PO SCH (05:29)
[2018-08-28] MEDS: METHADONE HCL 40 MG DISPERSABLE TABLET PO SCH (05:29)
--- NOTE | 2018-08-28 08:35 | DS ---
[facility] Detox Discharge Summary Admission Date: 08/23/18 Discharge Date: 08/28/18 - History Present History: Sedative Dependence Additional Comments: 38 years old male admitted on 08/23/18 for benzo withdrawal sx completed detox regimen tolerated well denies benzo withdrawal sx alert oriented x 3 no acute distress aftercare [facility] - Physical Exam Results Vital Signs: Vital Signs Temperature 97.6 F 08/28/18 06:13 Pulse Rate 58 L 08/28/18 06:13 Respiratory Rate 18 08/28/18 06:30 Blood Pressure 117/58 L 08/28/18 06:13 O2 Sat by Pulse Oximetry (%) Pertinent Admission Physical Exam Findings: benzo withdrawal sx Vital Signs Temperature 97.0 F L 08/28/18 09:01 Pulse Rate 71 08/28/18 09:01 Respiratory Rate 18 08/28/18 09:01 Blood Pressure 134/75 08/28/18 09:01 O2 Sat by Pulse Oximetry (%) Laboratory Last Values WBC 5.6 K/mm3 (4.0-10.0) 08/24/18 07:50 RBC 4.81 M/mm3 (4.00-5.60) 08/24/18 07:50 Hgb 13.1 GM/dL (11.7-16.9) 08/24/18 07:50 Hct 37.6 % (35.4-49) 08/24/18 07:50 MCV 78.1 fl (80-96) L 08/24/18 07:50 MCH 27.2 pg (25.7-33.7) 08/24/18 07:50 MCHC 34.8 g/dl (32.0-35.9) 08/24/18 07:50 RDW 14.7 % (11.9-15.9) 08/24/18 07:50 Plt Count 165 K/MM3 (134-434) D 08/24/18 07:50 MPV 8.7 fl (7.5-11.1) 08/24/18 07:50 Sodium 143 mmol/L (136-145) 08/24/18 07:50 Potassium 3.8 mmol/L (3.5-5.1) 08/24/18 07:50 Chloride 106 mmol/L (98-107) 08/24/18 07:50 Carbon Dioxide 27 mmol/L (21-32) 08/24/18 07:50 Anion Gap 10 MMOL/L (8-16) 08/24/18 07:50 BUN 12 mg/dL (7-18) 08/24/18 07:50 Creatinine 0.7 mg/dL (0.55-1.3) 08/24/18 07:50 Creat Clearance w eGFR > 60 (>60) 08/24/18 07:50 Random Glucose 84 mg/dL (74-106) 08/24/18 07:50 Calcium 8.0 mg/dL (8.5-10.1) L 08/24/18 07:50 Total Bilirubin 0.4 mg/dL (0.2-1) 08/24/18 07:50 AST 58 U/L (15-37) H 08/24/18 07:50 ALT 61 U/L (13-61) 08/24/18 07:50 Alkaline Phosphatase 57 U/L (45-117) 08/24/18 07:50 Total Protein 5.9 g/dl (6.4-8.2) L 08/24/18 07:50 Albumin 2.9 g/dl (3.4-5.0) L 08/24/18 07:50 Urine Color [place] 08/23/18 23:21 Urine Appearance Turbid 08/23/18 23:21 Urine pH 5.0 (5.0-8.0) 08/23/18 23:21 Ur Specific [place] 1.032 (1.010-1.035) 08/23/18 23:21 Urine Protein Negative (NEGATIVE) 08/23/18 23:21 Urine Glucose (UA) Negative (NEGATIVE) 08/23/18 23:21 Urine Ketones Negative (NEGATIVE) 08/23/18 23:21 Urine Blood Negative (NEGATIVE) 08/23/18 23:21 Urine Nitrite Negative (NEGATIVE) 08/23/18 23:21 Urine Bilirubin Negative (<2.0 mg/dL) 08/23/18 23:21 Urine Urobilinogen 4.0 e.u/dl mg/dL (0.2-1.0) 08/23/18 23:21 Ur Leukocyte Esterase Negative (NEGATIVE) 08/23/18 23:21 RPR Titer Nonreactive (NONREACTIVE) 08/24/18 07:50 lab noted - Treatment Hospital Course: Detox Protocol Followed, Detoxed Safely, Responded well, Discharged Condition Good, Rehab Referral Accepted Patient has Accepted a Rehab Referral to: [facility] - Medication Discharge Medications: Ambulatory Orders Gabapentin [Neurontin -] 300 mg PO Q12H #30 capsule 08/28/18 - Diagnosis (1) Drug-induced mood disorder Status: Suspected (2) Nicotine dependence Status: Acute Qualifiers: Nicotine product type: cigarettes Substance use status: in withdrawal Qualified Code(s): F17.213 - Nicotine dependence, cigarettes, with withdrawal (3) Sedative, hypnotic or anxiolytic dependence with withdrawal, uncomplicated Status: Acute (4) Weight loss Status: Acute (5) HTN (hypertension) Status: Chronic Qualifiers: Hypertension type: essential hypertension Qualified Code(s): I10 - Essential (primary) hypertension (6) Hepatitis C Status: Chronic Qualifiers: Viral hepatitis chronicity: chronic Hepatic coma status: without hepatic coma Qualified Code(s): B18.2 - Chronic viral hepatitis C (7) Nicotine dependence Status: Acute Qualifiers: Nicotine product type: cigarettes Substance use status: in withdrawal Qualified Code(s): F17.213 - Nicotine dependence, cigarettes, with withdrawal (8) Methadone maintenance therapy patient Status: Chronic - AMA Did Patient Leave Against Medical Advice: No
[2018-08-28 09:03] VITALS: BP 134/75; PULSE 71; TEMP 97
== END 2018-08-28 09:55 | disposition home or self-care (01) | DRG 773 ==
LOC: YASAS 14:27 → Y3N 19:11 → UNDOADMIN 19:11 → Y3N 22:21
PROVIDERS: ADMIT Neuromusculoskeletal Medicine & OMM; ATTEND Neuromusculoskeletal Medicine & OMM
PROC: HZ2ZZZZ Detoxification Services for Substance Abuse Treatment (ICD-10-PCS; principal; 2018-08-23)
DX: F13.230 Sedative, hypnotic or anxiolytic dependence with withdrawal, uncomplicated (principal); F11.20 Opioid dependence, uncomplicated; F14.20 Cocaine dependence, uncomplicated; F12.20 Cannabis dependence, uncomplicated; F17.213 Nicotine dependence, cigarettes, with withdrawal; F19.24 Other psychoactive substance dependence with psychoactive substance-induced mood disorder; F19.280 Other psychoactive substance dependence with psychoactive substance-induced anxiety disorder; F19.282 Other psychoactive substance dependence with psychoactive substance-induced sleep disorder; F41.9 Anxiety disorder, unspecified; F32.9 Major depressive disorder, single episode, unspecified; I10 Essential (primary) hypertension; B18.2 Chronic viral hepatitis C; Z88.8 Allergy status to other drugs, medicaments and biological substances; Z59.0 Homelessness
CPT/HCPCS: 36415; 80053; 81003; 85027; 86593; 93005; 93010